=== PATIENT | male | born 1975 | race American Indian/Alaskan Native ===

== ENCOUNTER 2018-11-06 21:56 | Emergency (ER) | payer OTHER ==
[2018-11-06 22:11] VITALS: O2SAT 100
--- NOTE | 2018-11-06 22:57 | ED PDOC ---
HPI: Chest Pain Time Seen by Provider: 11/06/18 22:16 Chief Complaint (Nursing): Chest Pain Chief Complaint (Provider): Chest Pain History Per: Patient History/Exam Limitations: no limitations Onset/Duration Of Symptoms: Hrs (x 2) Current Symptoms Are (Timing): Gone Now Quality: "Pain" Additional Complaint(s): 43 year old male with a history of HTN presents to the ED for evaluation of chest pain, sudden onset at 8pm tonight, about two hours ago. Patient reports he was sitting when the pain came on, evoking a tremor like sensation radiating into his neck and clamminess. Earlier today, he also experienced right arm soreness and palpitations. All symptoms resolved prior to arrival at ED. Offers no other medical complaints. PMD: Ronal Past Medical History Reviewed: Historical Data, Nursing Documentation, Vital Signs Vital Signs: Last Vital Signs Temp 98.7 F 11/06/18 22:08 Pulse 100 H 11/06/18 22:08 Resp 18 11/06/18 22:08 BP 162/93 H 11/06/18 22:08 Pulse Ox 100 11/06/18 22:08 - Medical History PMH: HTN - Surgical History Surgical History: Appendectomy Other surgeries: left shoulder reconstruction - Family History Family History: States: Unknown Family Hx - Social History Drugs: Cannabis (occasionally) - Allergies Allergies/Adverse Reactions: Allergies Allergy/AdvReac Type Severity Reaction Status Date / Time No Known Allergies Allergy Verified 11/06/18 22:11 Review of Systems ROS Statement: Except As Marked, All Systems Reviewed And Found Negative Constitutional: Negative for: Fever, Chills Cardiovascular: Positive for: Chest Pain, Palpitations Musculoskeletal: Positive for: Neck Pain (radiating from chest), Arm Pain (right arm soreness) Physical Exam - Reviewed Nursing Documentation Reviewed: Yes Vital Signs Reviewed: Yes - Physical Exam Appears: Positive for: Non-toxic, No Acute Distress Head Exam: Positive for: ATRAUMATIC, NORMAL INSPECTION, NORMOCEPHALIC Skin: Positive for: Normal Color, Warm, Dry Eye Exam: Positive for: EOMI, Normal appearance, PERRL Neck: Positive for: Normal, Painless ROM, Supple Cardiovascular/Chest: Positive for: Regular Rate, Rhythm, Chest Non Tender. Negative for: Murmur Respiratory: Positive for: Normal Breath Sounds. Negative for: Respiratory Distress Gastrointestinal/Abdominal: Positive for: Normal Exam, Soft. Negative for: Tenderness Back: Positive for: Normal Inspection. Negative for: L CVA Tenderness, R CVA Tenderness Extremity: Positive for: Normal ROM. Negative for: Deformity Neurologic/Psych: Positive for: Alert, Oriented. Negative for: Motor/Sensory Deficits - Laboratory Results Result Diagrams: 11/06/18 23:26 11/06/18 23:26 - ECG O2 Sat by Pulse Oximetry: 100 (RA) Pulse Ox Interpretation: Normal Medical Decision Making Medical Decision Makin:17 Impression: 43 year old male with chest pain Initial Plan: --EKG --CMP --CBC --UDS --Troponin --TSH --CXR 0106 --Labs reviewed and show no clinically significant abnormality --Patient remains asymptomatic in the duration of staying in the ER --Patient is stable for discharge and instructed to followup with a supply cataloguer in 4 to 5 days --Return precautions provided --Clinical impression is atypical chest pain and palpitations Scribe Attestation: Documented by Nicolle Haji acting as a scribe for Junito Boswell MD Provider Scribe Attestation: All medical record entries made by the Scribe were at my direction and personally dictated by me. I have reviewed the chart and agree that the record accurately reflects my personal performance of the history, physical exam, medical decision making, and the department course for this patient. I have also personally directed, reviewed, and agree with the discharge instructions and disposition. Disposition - Clinical Impression Clinical Impression: Atypical chest pain, Palpitations - Patient ED Disposition Is Patient to be Admitted: No - Disposition Disposition: Routine/Home Disposition Time: 01:06 Condition: STABLE Instructions: Palpitations, Chest Pain That Is Not Caused by the Heart (DC) Forms: [employer] (Nepali)
[2018-11-06 23:29] LABS: BASO % 0.5 % (0.0-2.0); EOS # 0.1 K/uL (0.0-0.7); EOS % 1.2 % (0.0-4.0); HEMOGLOBIN 13.5 g/dL (12.0-18.0); LYMPH # 1.5 K/uL (1.0-4.3); LYMPH % 21.9 % (20.0-40.0); MEAN CORPUSCULAR HEMOGLOBIN 31.1 pg (27.0-31.0); MEAN CORPUSCULAR HGB CONC 33.1 g/dL (33.0-37.0); MEAN PLATELET VOLUME 9.5 fl (7.2-11.7); MONO # 0.7 K/uL (0.0-0.8); MONO % 10.7 % (0.0-10.0); NEUT # 4.5 K/uL (1.8-7.0); NEUT % 65.7 % (50.0-75.0); RBC 4.33 Mil/uL (4.40-5.90); RED CELL DISTRIBUTION WIDTH 12.9 % (11.5-14.5); WHITE BLOOD COUNT 6.9 K/uL (4.8-10.8)
[2018-11-06 23:40] LABS: ALB/GLOB RATIO 1.4 (1.0-2.1); ALBUMIN 4.5 g/dL (3.5-5.0); ALT/SGPT 27 U/L (21-72); AST/SGOT 25 U/L (17-59); BLOOD UREA NITROGEN 22 mg/dl (9-20); CALCIUM 9.4 mg/dL (8.4-10.2); GFR NON-AFRICAN AMERICAN > 60
[2018-11-06 23:52] LABS: BARBITURATES, UR NEGATIVE (NEGATIVE); BENZODIAZEPINES, UR NEGATIVE (NEGATIVE); OPIATES, UR NEGATIVE (NEGATIVE); PHENCYCLIDINE, UR NEGATIVE (NEGATIVE)
[2018-11-07 03:46] VITALS: BP 150/55; PULSE 88; RESP 17; TEMP 98.3
--- NOTE | 2018-11-07 10:51 | RAD ---
Date of service: 11/06/2018 HISTORY: chest pain COMPARISON: No prior. FINDINGS: LUNGS: No active pulmonary disease. PLEURA: No significant pleural effusion identified, no pneumothorax apparent. CARDIOVASCULAR: No aortic atherosclerotic calcification present. Normal cardiac size. No pulmonary vascular congestion. OSSEOUS STRUCTURES: Orthopedic anchors are identified at the left glenoid process and likely VISUALIZED UPPER ABDOMEN: Normal. OTHER FINDINGS: Humeral head. IMPRESSION: No acute cardiopulmonary disease appreciated.
--- NOTE | 2018-11-07 13:53 | CARD ---
APPROVED REPORT Date of service: 11/06/2018 EKG Measurement Heart [id number] <Conclusion> Sinus tachycardia with occasional premature ventricular complexes Nonspecific ST abnormality Abnormal ECG
== END 2018-11-07 01:15 | disposition home or self-care (01) ==
LOC: H.ER 21:56
DX: R07.89 Other chest pain (principal); R00.2 Palpitations